=== PATIENT | male | born 1990 | race Asian ===

== ENCOUNTER 2018-10-07 18:06 | Emergency (ER) | payer OTHER ==
[2018-10-07] MEDS ORDERED: HYDROmorphONE/DILAUDID 2 MG/ML INJ IVP ONE (18:13)
[2018-10-07 18:16] VITALS: BP 124/79
--- NOTE | 2018-10-07 18:46 | EDPHY ---
H & P Time Seen by Provider: 10/07/18 18:45 HPI/ROS: CLINICAL IMPRESSION: Left clavicle fracture ASSESSMENT/PLAN: 27-year-old male presents to the emergency department by ambulance after he fell snowboarding at [facility] landing on his left shoulder. Patient sustained a closed, displaced, overlapping, mid shaft clavicle fracture. He has no evidence of shoulder dislocation or humeral head fracture. He is neurovascularly intact. No pneumothorax, hypoxia, or respiratory distress. No other injuries. Patient was placed in a sling, provided oral analgesics and a prescription for pain medications and orthopedic referral. Encouraged patient to call Orthopedics tomorrow. Warning signs return to ED sooner alignment discharge. DIFFERENTIAL DX: Differential includes but not limited to left clavicle fracture, shoulder dislocation, humerus fracture, ligamentous injury, rotator cuff instability ED PROCEDURES: Procedure: Splint placement. A sling splint was applied to left arm by application technician, supervised by myself. After application of the splint I returned and re-examined the patient. The splint was adequately immobilizing the joint and distal to the splint the patient's circulation and sensation was intact. ED COURSE: CHIEF COMPLAINT: Left clavicle pain HPI: 27-year-old male presents to the emergency department with left clavicle pain after he fell snowboarding at [place]. Patient states he landed directly onto his left shoulder. He denies shortness of breath or chest wall pain. He did not hit his head. He denies neck and back pain. He has no other injuries. He has no reported medical history. PAST MEDICAL HISTORY: None reported Pertinent Past Surgical History: None reported Social History: Otherwise healthy REVIEW OF SYSTEMS: All other systems negative Constitutional: No fever, no chills Musculoskeletal: No deformity, + joint pain Skin: No rashes, color change or open wounds. Neurological: No sensory loss or weakness. PHYSICAL EXAM: General Appearance: Alert, oriented, appropriate for age, cooperative, NAD, well hydrated, non-toxic appearing, VSS, no hypoxia. Neurological: Alert and oriented x 3, normal sensation and strength of extremities Skin: Warm, dry, no rashes, no nodules on palpation. Musculoskeletal: Reproducible pain to palpation of left midshaft clavicle. No tenting of the skin over the clavicle. Lungs clear to auscultation bilaterally in all esqueda. No open wounds. No reproducible tenderness to humeral head, left upper arm or elbow. Neurovascular exam intact. MEDICAL DECISION MAKING: Patient was seen independently. Secondary supervising physician at time of evaluation was Dr. Gomes . Diagnosis: Left clavicle fracture . New, requires workup Summary: See assessment and plan for summary of ED visit Independent visualization of images, tracing, or specimens Yes / No. Patient Progress: Stable. Smoking Status: Never smoked Constitutional: Initial Vital Signs Temperature (C) 36.8 C 10/07/18 18:11 Heart Rate 78 10/07/18 18:11 Respiratory Rate 18 10/07/18 18:11 Blood Pressure 124/79 H 10/07/18 18:11 O2 Sat (%) 96 10/07/18 18:11 O2 Delivery Mode Nasal Cannula O2 (L/minute) 2 Allergies/Adverse Reactions: No Known Allergies Allergy (Unverified 10/07/18 18:47) Home Medications: Medication Instructions Recorded oxyCODONE/APAP 5/325 [Percocet 1 - 2 tab PO Q4-6PRN PRN #15 tab 10/07/18 5/325] MDM/Departure - MDM Imaging Results: Imaging Impressions Clavicle X-Ray 10/07/18 18:13 Impression: Overlapping mid left clavicular shaft fracture. Imaging: I viewed and interpreted images myself Medications Given: Discontinued Medications Hydromorphone HCl (Dilaudid) 0.5 mg IVP EDNOW ONE Stop: 10/07/18 18:14 Last Admin: 10/07/18 18:22 Dose: 0.5 mg - Depart Disposition: Home, Routine, Self-Care Clinical Impression: Fx clavicle shaft-closed Qualifiers: Encounter type: initial encounter Fracture alignment: displaced Laterality: left Qualified Code(s): S42.022A - Displaced fracture of shaft of left clavicle , initial encounter for closed fracture Condition: Good Instructions: Clavicle Fracture (ED) Additional Instructions: DISCHARGE INSTRUCTIONS FROM YOUR DOCTOR Thank you for visiting our emergency department today. Please keep in mind that discharge from the emergency department does not mean that there is nothing wrong - it simply means that we have not identified an emergency condition that requires further evaluation or treatment in the hospital. You should always plan to follow up with primary care for re-evaluation of your condition in the next 2-3 days. If you have been referred to a specialist, please call as soon as possible (today or tomorrow) to schedule your follow up appointment at the appropriate time. YOU HAVE A FRACTURE OF THE LEFT CLAVICLE THAT WILL NEED ORTHOPEDIC EVALUATION. PLEASE CALL THEIR OFFICE TOMORROW, LET THEM KNOW YOUR IN THE EMERGENCY DEPARTMENT AND YOU NEED TO FOLLOW-UP APPOINTMENT. THIS MAY NEED SURGERY BUT PLEASE HAVE FORMAL CONSULTATION WITH ORTHOPEDICS. PAIN MEDICATION WAS PRESCRIBED TO USE IF NEEDED. DO NOT DRIVE OR DRINK ALCOHOL WHILE TAKING NARCOTIC PAIN MEDICATION. PLEASE BE AWARE, NARCOTICS CAN CAUSE CONSTIPATION, LETHARGY, AND INCREASE YOUR RISK OF FALLING. DO NOT TAKE TYLENOL AT THE SAME TIME VICODIN OR PERCOCET. RETURN TO THE EMERGENCY DEPARTMENT FOR SEVERE PAIN , SHORTNESS OF BREATH, LEFT ARM NUMBNESS OR TINGLING, SEVERE LEFT ARM OR NECK PAIN, OR ANY OTHER CONCERNS. People present with illnesses and injuries in different ways, and it is always possible that we have missed something. You may always return for re-evaluation if symptoms worsen or if they are not improving or if you develop new/different symptoms. Again, thank you for choosing our emergency department. We hope that you feel better. Stand Alone Forms: Airline Excuse Prescriptions: oxyCODONE/APAP 5/325 [Percocet 5/325] 1 - 2 tab PO Q4-6PRN PRN #15 tab PRN Reason: Pain, Breakthrough Referrals: NONE *PRIMARY CARE P,. [Primary Care Provider] - As per Instructions Doug Marcus MD [Medical Doctor] - 1-2 days without fail
== END 2018-10-07 19:09 | disposition home or self-care (01) ==
DX: S42.022A Displaced fracture of shaft of left clavicle, initial encounter for closed fracture (principal); V00.311A Fall from snowboard, initial encounter; Y92.838 Other recreation area as the place of occurrence of the external cause; Y93.23 Activity, snow (alpine) (downhill) skiing, snowboarding, sledding, tobogganing and snow tubing; Y99.9 Unspecified external cause status
CPT/HCPCS: 96374; J1170